=== PATIENT | male | born 1990 | race Caucasian/White ===

== ENCOUNTER 2020-11-05 18:45 | Emergency (ER) | payer BC, SELFPAY ==
[2020-11-05] VITALS (8 sets, daily range): BP systolic 118–144; BP diastolic 86–102; PULSE 102–123; RESP 12–20; TEMP 37; O2SAT 93–99
--- NOTE | 2020-11-05 19:01 | ECG_ITS ---
Measurements Intervals [place] Rate: 116 P: 4 MN: 124 QRS: 30 QRSD: 89 T: 49 QT: 286 QTc: 398 Interpretive Statements SINUS TACHYCARDIA INCOMPLETE RIGHT BUNDLE BRANCH BLOCK ABNORMAL ECG Electronically Signed On 11-06-2020 7:12:16 WOOD FLOUR MILLER by Aurelio Carrion D.O.
[2020-11-05 19:44] LABS: Basophils Percent Auto 0.4 % (0.2-1.2); Hematocrit 47.6 % (42.0-52.0); Hemoglobin 16.7 g/dL (14.0-18.0); Immature Granulocyte Absolute 0.01 K/mm3 (0.00-0.031); Immature Granulocyte Percent A 0.2 % (0-0.5); Lymphocytes Absolute Auto 1.43 K/mm3 (0.9-3.2); Lymphocytes Percent Auto 28.3 % (18.3-44.2); Mean Corpuscular HGB Conc 35.1 g/dl (32-36); Mean Corpuscular Hemoglobin 31.1 pg (26-34); Mean Corpuscular Volume 88.6 fl (80-100); Mean Platelet Volume 10.3 fl (7.4-10.4); Monocytes Absolute Auto 0.3 K/mm3 (0.1-0.6); Monocytes Percent Auto 5.1 % (2.6-8.5); Neutrophils Absolute Auto 3.3 K/mm3 (1.3-6.7); Platelet Count Result 173 k/mm3 (150-375); Red Blood Count 5.37 M/mm3 (4.6-6.20); Red Cell Distribution Width 11.7 % (11.5-14.5); White Blood Count 5.1 K/mm3 (4.5-10.0)
[2020-11-05] MEDS: ONDANSETRON INJ 4 MG/2 ML VIAL IV PUSH (19:46)
[2020-11-05] MEDS: SODIUM CHLORIDE 0.9% IV 1,000 ML 999 ML IV CONT ×2 (19:47→21:06)
[2020-11-05 19:59] LABS: Alanine Aminotransferase 384 U/L (4-50); Albumin Level 4.6 g/dL (3.5-5.1); Alkaline Phosphatase 138 U/L (38-126); Anion Gap 7 mmol/L (8-16); Aspartate Amino Transferase 190 U/L (17-59); Bilirubin,Total 1.4 mg/dL (0.2-1.3); Blood Urea Nitrogen 19 mg/dL (9-20); Calcium 8.7 mg/dL (8.4-10.2); Carbon Dioxide 28 mmol/L (22-30); Chloride 100 mmol/L (98-107); Estimated CRCL calculation 128 ml/min; Estimated Glomerular Filt Rate > 60; Glucose 117 mg/dL (75-110); Potassium 3.8 mmol/L (3.4-5.0); Sodium 135 mmol/L (137-145)
--- NOTE | 2020-11-05 21:35 | ED.GENADULT ---
HPI - General Adult General Chief complaint: Shortness of Breath/Dyspnea Stated complaint: COVID+, N/V, coughing Time Seen by Provider: 11/05/20 18:59 History of Present Illness HPI narrative: Patient is a 30-year-old male who presents ER with fatigue and weakness. Patient recently diagnosed with COVID-19. Reports he has been having nausea and vomiting has been unable to eat or drink anything. This is caused him to start feeling lightheaded. He took a warm bath tonight when he got out she had syncope. He reports his urine is dark. No runny nose/sore throat. He is having no dyspnea. Mild cough. Related Data Allergies Allergy/AdvReac Type Severity Reaction Status Date / Time No Known Allergies Allergy Verified 11/05/20 18:52 Review of Systems Review of Systems: All systems reviewed & are unremarkable except as noted in HPI and below Constitutional: Constitutional: Denies chills, Reports fatigue, Denies fever(s) and Reports weakness ENT: Denies dizziness and Denies sore throat Respiratory: Respiratory: Reports cough, Denies dyspnea and Denies wheezing Gastrointestinal: Gastrointestinal: Reports diarrhea, Reports nausea and Reports vomiting Genitourinary: Genitourinary: Denies oliguria, Denies dysuria and Denies urinary frequency PMFSH Past Medical History Medical History (Updated 11/05/20 @ 21:38 by Robbin Kingsley MD) Healthy adult male Surgical History Surgical History (Updated 11/05/20 @ 21:37 by Robbin Kingsley MD) No pertinent past surgical history Social History Social History Gender identity (if verbalized by the patient): Male Exam Narrative: Exam Narrative: GENERAL: Well-appearing, well-nourished, and in no acute distress. HEAD: Normocephalic, atraumatic. CHEST: Clear to auscultation. No respiratory distress. HEART: Tachycardic and regular. Normal peripheral pulses. ABDOMEN: Soft, nontender, nondistended, normal active bowel sounds. EXTREMITIES: Normal range of motion. No edema. SKIN: Warm, dry, no rash. NEURO: N Alert and oriented x3. PSYCH: Normal mood and affect. Course Course Emergency Course: Patient's heart rate elevated with orthostatic testing. No drop in blood pressure. No syncope. Patient given 2 L of IV fluid. Mild transaminitis from COVID-19. No hypoxia. Discharge home. Vital Signs Vital signs: Vital Signs Temperature 98.6 F 11/05/20 18:50 Pulse Rate 117 H 11/05/20 18:50 Respiratory Rate 12 11/05/20 18:50 Blood Pressure 144/102 H 11/05/20 18:50 Pulse Oximetry 93 11/05/20 18:50 Temperature 98.6 F 11/05/20 18:50 Pulse Rate 119 H 11/05/20 20:48 Respiratory Rate 18 11/05/20 20:48 Blood Pressure 124/89 11/05/20 20:48 Pulse Oximetry 94 11/05/20 20:48 Medical Decision Making Vital Signs Vital Signs: Vital Signs Temperature 98.6 F 11/05/20 18:50 Pulse Rate 117 H 11/05/20 18:50 Respiratory Rate 12 11/05/20 18:50 Blood Pressure 144/102 H 11/05/20 18:50 Pulse Oximetry 93 11/05/20 18:50 Temperature 98.6 F 11/05/20 18:50 Pulse Rate 119 H 11/05/20 20:48 Respiratory Rate 18 11/05/20 20:48 Blood Pressure 124/89 11/05/20 20:48 Pulse Oximetry 94 11/05/20 20:48 Lab Data Result diagrams: 11/05/20 19:39 11/05/20 19:39 Labs: Lab Results 11/05/20 11/05/20 Range/Units 19:39 19:39 WBC 5.1 (4.5-10.0) K/mm3 RBC 5.37 (4.6-6.20) M/mm3 Hgb 16.7 (14.0-18.0) g/dL Hct 47.6 (42.0-52.0) % MCV 88.6 (80-100) fl MCH 31.1 (26-34) pg MCHC 35.1 (32-36) g/dl RDW 11.7 (11.5-14.5) % Plt Count 173 (150-375) k/mm3 MPV 10.3 (7.4-10.4) fl Immature Gran % (Auto) 0.2 (0-0.5) % Neut % (Auto) 66.0 (45.5-73.1) % Lymph % (Auto) 28.3 (18.3-44.2) % [place] % (Auto) 5.1 (2.6-8.5) % Eos % (Auto) 0.0 (0-4.4) % Baso % (Auto) 0.4 (0.2-1.2) % Lymph # (Auto) 1.43 (0.9-3.2) K/mm3 [place] # (Auto) 0.3 (0.1-0.6) K/mm3 Eos # (Auto)
== END 2020-11-05 22:08 | disposition home or self-care (01) ==
PROVIDERS: Emergency Provider Emergency Medicine; PCP Registered Nurse
DX: U07.1 COVID-19 (principal); E86.0 Dehydration
CPT/HCPCS: 36415; 80053; 85025; 93005; 96361; 96374; 99284; J2405; J7030

== ENCOUNTER 2020-11-08 22:22 | Inpatient (IN) | payer BC, SELFPAY ==
--- NOTE | ~2020-11-08 | US_ITS ---
EXAMINATION: US abdomen limited EXAM DATE: 11/09/2020 12:41 INDICATION: Elevated liver function tests. TECHNIQUE: Multiple grayscale and Doppler images of the abdomen right upper quadrant were obtained (b y a technologist who performed the scan) and subsequently reviewed. There is no prior study for claudia tobin. FINDINGS: The pancreatic head and body are normal in appearance. The pancreatic tail is not visualized. Mildl y echogenic liver parenchyma, hepatic steatosis. There are no focal liver lesions identified. Ther e is no evidence of intrahepatic biliary duct dilation. Portal venous flow was seen in the hepatoped al, normal direction and has normal Doppler waveform. No right-sided hydronephrosis. Common bile duct measures 3 mm, which is normal. The gallbladder wall is normal in thickness, with ex pected amount of distention. No sonographic evidence of pericholecystic fluid. There is no cholelit hiases. Technologist performing exam reports patient did not demonstrate sonographic Pope's sign. Please note that this sign is less reliable in patients who have received pain medication. IMPRESSION: 1. Hepatic steatosis. Reviewed, dictated and finalized at location A. NOGRAPHY PROFESSOR IMPRESSION: 1. Hepatic steatosis.
--- NOTE | ~2020-11-08 | XR_ITS ---
EXAMINATION: XR chest 1V portable DATE: 11/14/2020 09:51 INDICATION: COVID-19 pneumonia. TECHNIQUE: A single frontal view of the chest was obtained. COMPARISON: Chest single view 11/09/2020, chest CT 11/09/2020 FINDINGS: There are airspace opacities in all lung zones bilaterally. No pleural effusion or pneumoth orax. The heart size is normal. IMPRESSION: 1. Diffuse lung disease with worsening on the right, consistent with pneumonia. Reviewed, dictated and finalized at location A. TURNER
--- NOTE | ~2020-11-08 | CT_ITS ---
EXAMINATION: CTA chest PE protocol DATE: 11/09/2020 13:24 INDICATION: Hypoxia TECHNIQUE: Computed tomography (CT) pulmonary angiogram of the chest was performed with 100 mL Omnipa que-350 intravenous contrast. Additional 3D reconstructions utilizing coronal maximum intensity proje ction (MIP) were performed. Automated exposure control and iterative reconstruction technique were em ployed. The dose-length product was 597.80 mGy-cm. COMPARISON: None FINDINGS: Good but suboptimal contrast opacification of the pulmonary arteries. There is mild streak artifact f rom dense contrast in the superior vena cava and right atrium. Mild to moderate scattered respiratory motion artifact. Together this significantly decreases sensitivity in the smaller subsegmental pulmo nary arteries. No central pulmonary embolism through the lobar and primary segmental pulmonary arteri es. Extensive bilateral patchy consolidation groundglass opacities throughout all lobes of both lungs with appearance most suggestive of COVID pneumonia. No pleural effusion. Heart size is normal. No pe ricardial effusion. Mild enlargement of the central pulmonary arteries consistent with pulmonary jaylyn rial hypertension. Thoracic aorta is normal in caliber with no dissection. Mildly enlarged bilateral hilar and mediastinal lymph nodes which are likely reactive. Visualized upper abdomen and bones are u nremarkable. IMPRESSION: 1. No central pulmonary embolism through the first order segmental pulmonary arteries. More periphera l evaluation is limited by suboptimal contrast opacification and mild to moderate scattered motion ar tifact. 2. Extensive patchy bilateral lung disease with appearance most suggestive of COVID pneumonia. 3. Mild enlargement of the central pulmonary arteries consistent with pulmonary arterial hypertension . 4. Mild likely reactive mediastinal and bilateral hilar lymphadenopathy. Reviewed, dictated and finalized at location B. T GRID ENGINEER IMPRESSION: 1. No central pulmonary embolism through the first order segmental pulmonary ar teries. More peripheral evaluation is limited by suboptimal contrast opacificat ion and mild to moderate scattered motion artifact. 2. Extensive patchy bilateral lung disease with appearance most suggestive of C OVID pneumonia. 3. Mild enlargement of the central pulmonary arteries consistent with pulmonary arterial hypertension. 4. Mild likely reactive mediastinal and bilateral hilar lymphadenopathy.
--- NOTE | ~2020-11-08 | XR_ITS ---
EXAMINATION: XR chest 1V portable EXAM DATE: 11/09/2020 10:31 INDICATION: Hypoxia worsening, COVID 19. TECHNIQUE: Portable AP frontal chest x-ray was obtained. Comparison is made to prior examination from 11/08/2020. FINDINGS: This study probably better penetrated than yesterday's exam. Moderate to large amount of bi lateral acute airspace disease consistent with COVID pneumonia. Accounting for differences in techniq ue, there is no significant interval change. The cardiomediastinal silhouette is prominent but magnified on this AP technique. There is no pneumot horax suspected. There are no pleural effusions. There are no osseous abnormalities identified. IMPRESSION: Moderate to large amount of COVID pneumonia unchanged. Reviewed, dictated and finalized at location A. R RENOVATOR
--- NOTE | ~2020-11-08 | XR_ITS ---
XR chest 1V portable DATE: 11/08/2020 23:14 INDICATION: Generalized chest pain for one week. Dyspnea. Covid-positive. TECHNIQUE: Portable upright AP chest on 11/08/2020 at 2310 hours COMPARISON: None FINDINGS: There are extensive patchy consolidating infiltrates throughout both lung toney. Normal heart size. No pleural effusion or pneumothorax. No pulmonary vascular congestion. IMPRESSION: Extensive bilateral patchy consolidating infiltrates, most likely due to severe bilateral pneumonia, very possibly secondary to Covid 19 Reviewed, dictated and finalized at location A. ERCIAL SHRIMPING CAPTAIN IMPRESSION: Extensive bilateral patchy consolidating infiltrates, most likely d ue to severe bilateral pneumonia, very possibly secondary to Covid 19
[2020-11-08 22:24] VITALS: BP 129/83; PULSE 116; RESP 22; TEMP 36.4; O2SAT 87
--- NOTE | 2020-11-08 22:31 | ECG_ITS ---
Measurements Intervals [place] Rate: 109 P: 28 NV: 155 QRS: 17 QRSD: 90 T: 48 QT: 302 QTc: 408 Interpretive Statements SINUS TACHYCARDIA INCOMPLETE RIGHT BUNDLE BRANCH BLOCK BASELINE WANDER- V1-V3 ABNORMAL ECG Electronically Signed On 11-09-2020 7:07:14 MULTIPLEX OPERATOR by Aurelio Carrion D.O.
[2020-11-08 22:40] VITALS: O2SAT 84
[2020-11-08 22:41] VITALS: BP 136/93; PULSE 110; RESP 25; O2SAT 91
--- NOTE | 2020-11-08 22:43 | ED.GENADULT ---
HPI - General Adult General Chief complaint: Shortness of Breath/Dyspnea Stated complaint: breathing problems, COVID positive Time Seen by Provider: 11/08/20 22:31 History of Present Illness HPI narrative: Patient is a 30-year-old gentleman who presents emergency department with chief complaint of shortness of breath. The patient reports that he was diagnosed with COVID-19 last week patient reports that he has been having a cough and has felt short of breath the patient states he got worse in the last 24 hours patient reports that is not improved by anything Related Data Allergies Allergy/AdvReac Type Severity Reaction Status Date / Time No Known Allergies Allergy Verified 11/05/20 18:52 Review of Systems Review of Systems: Narrative: A 10 system review of systems was completed on the patient and is negative except for what is stated in the HPI. Nursing and ancillary documentation was reviewed. PMFSH Past Medical History Medical History Healthy adult male Surgical History Surgical History No pertinent past surgical history Social History Social History Gender identity (if verbalized by the patient): Male Comments Patient has a recent past medical history of COVID-19 Social history the patient denies smoking Exam Narrative: Exam Narrative: GENERAL: Well-appearing, well-nourished, and in no acute distress. HEAD: Normocephalic, atraumatic. EYES: PERRLA and EOMI. ENT: Nares clear, no rhinorrhea or epistaxis. Mucous membranes moist. NECK: Supple. CHEST: Clear to auscultation. No respiratory distress. HEART: Regular rate and rhythm. No murmur heard. Normal peripheral pulses. ABDOMEN: Soft, nontender, nondistended, normal active bowel sounds. EXTREMITIES: Normal range of motion. No edema. SKIN: Warm, dry, no rash. NEURO: No focal deficits. Alert and oriented x3. PSYCH: Normal mood and affect. Course Vital Signs Vital signs: Vital Signs Temperature 36.4 C 11/08/20 22:24 Pulse Rate 116 H 11/08/20 22:24 Respiratory Rate 22 H 11/08/20 22:24 Blood Pressure 129/83 11/08/20 22:24 Pulse Oximetry 87 L 11/08/20 22:24 Temperature 36.4 C 11/08/20 22:24 Pulse Rate 115 H 11/08/20 23:42 Respiratory Rate 23 H 11/08/20 23:42 Blood Pressure 131/85 11/08/20 23:31 Pulse Oximetry 91 11/08/20 23:42 Medical Decision Making Vital Signs Vital Signs: Vital Signs Temperature 36.4 C 11/08/20 22:24 Pulse Rate 116 H 11/08/20 22:24 Respiratory Rate 22 H 11/08/20 22:24 Blood Pressure 129/83 11/08/20 22:24 Pulse Oximetry 87 L 11/08/20 22:24 Temperature 36.4 C 11/08/20 22:24 Pulse Rate 115 H 11/08/20 23:42 Respiratory Rate 23 H 11/08/20 23:42 Blood Pressure 131/85 11/08/20 23:31 Pulse Oximetry 91 11/08/20 23:42 Lab Data Result diagrams: 11/08/20 22:54 11/08/20 22:54 Labs: Lab Results 11/08/20 11/08/20 11/08/20 Range/Units 22:54 22:54 22:54 WBC 10.5 H (4.5-10.0) K/mm3 RBC 4.92 (4.6-6.20) M/mm3 Hgb 15.3 (14.0-18.0) g/dL Hct 44.4 (42.0-52.0) % MCV 90.2 (80-100) fl MCH 31.1 (26-34) pg MCHC 34.5 (32-36) g/dl RDW 12.0 (11.5-14.5) % Plt Count 258 (150-375) k/mm3 MPV 10.0 (7.4-10.4) fl Immature Gran % (Auto) 0.8 H (0-0.5) % Neut % (Auto) 85.5 H (45.5-73.1) % Lymph % (Auto) 10.5 L (18.3-44.2) % [place] % (Auto) 3.0 (2.6-8.5) % Eos % (Auto) 0.0 (0-4.4) % Baso % (Auto) 0.2 (0.2-1.2) % Lymph # (Auto) 1.10 (0.9-3.2) K/mm3 [place] # (Auto) 0.3 (0.1-0.6) K/mm3 Eos # (Auto) 0.0 (0-0.3) K/mm3 Baso # (Auto) 0.0 (0.0-0.1) K/mm3 Abs Immat Gran (auto) 0.08 H (0.00-0.031) K/mm3 Absolute Neuts (auto) 8.9 H (1.3-6.7) K/mm3 Absolute Nucleated RBC 0.0 (0
[2020-11-08 22:52] LABS: Alveolar/Arterial O2 Gradient 101.8 mmHg; Base Excess ABG 0.3 mEq/l (+/-2.0); Device NASAL CANNULA; Fractional Inspired Oxygen 28 %; HCO3 ABG 23.9 mEq/l (22.0-26.0); Modified Allen's Test Pass; Oxygen Content ABG 19.6 %vol (16.0-22.0); Oxygen Saturation ABG 90.4 % (95.0-100.0); Oxyhemoglobin 89.1 % THb (90.0-100.0); PCO2 ABG 35.6 mmHg (35.0-45.0); PO2 ABG 55.8 mmHg (80.0-100.0); PO2 FiO2 Ratio Arterial Blood 1.99 %; Site Drawn RIGHT RADIAL; Total Hemoglobin 15.7 g/dL (12.0-18.0); pH ABG 7.444 (7.350-7.450)
[2020-11-08] MEDS: DEXAMETHASONE SOD PHOS INJ 4 MG/ML VIAL 6 MG IV PUSH (22:52)
[2020-11-08] MEDS: ALBUTEROL SULFATE (*SP) INHALER 2 PUFF INHALATION (22:57)
[2020-11-08 23:11] LABS: Basophils Percent Auto 0.2 % (0.2-1.2); Hematocrit 44.4 % (42.0-52.0); Hemoglobin 15.3 g/dL (14.0-18.0); Immature Granulocyte Absolute 0.08 K/mm3 (0.00-0.031); Immature Granulocyte Percent A 0.8 % (0-0.5); Lymphocytes Percent Auto 10.5 % (18.3-44.2); Mean Corpuscular HGB Conc 34.5 g/dl (32-36); Mean Corpuscular Hemoglobin 31.1 pg (26-34); Mean Corpuscular Volume 90.2 fl (80-100); Monocytes Absolute Auto 0.3 K/mm3 (0.1-0.6); Neutrophils Absolute Auto 8.9 K/mm3 (1.3-6.7); Neutrophils Percent Auto 85.5 % (45.5-73.1); Platelet Count Result 258 k/mm3 (150-375); Red Blood Count 4.92 M/mm3 (4.6-6.20); White Blood Count 10.5 K/mm3 (4.5-10.0)
[2020-11-08 23:12] VITALS: PULSE 117; O2SAT 91
[2020-11-08 23:22] LABS: INR 1.1; Lactic Acid Reflex 0.8 mmol/L (0.7-2.1); Prothrombin Time 14.3 Seconds (11.1-14.7)
[2020-11-08 23:23] LABS: Partial Thromboplastin Time 36.1 SECONDS (22.3-36.8)
[2020-11-08 23:24] LABS: Alanine Aminotransferase 304 U/L (4-50); Alkaline Phosphatase 295 U/L (38-126); Anion Gap 9 mmol/L (8-16); Aspartate Amino Transferase 157 U/L (17-59); Bilirubin,Total 2.4 mg/dL (0.2-1.3); Blood Urea Nitrogen 15 mg/dL (9-20); Calcium 8.7 mg/dL (8.4-10.2); Carbon Dioxide 27 mmol/L (22-30); Chloride 101 mmol/L (98-107); Estimated CRCL calculation 143 ml/min; Estimated Glomerular Filt Rate > 60; Glucose 118 mg/dL (75-110); Magnesium 2.2 mg/dL (1.6-2.3); Potassium 4.2 mmol/L (3.4-5.0); Sodium 137 mmol/L (137-145)
[2020-11-08 23:26] LABS: Add Urine Microscopic? YES; Appearance Urine Clear (Clear); Bilirubin Urine 1+ (Negative); Blood Urine 1+ (Negative); Color Urine Amber (Yellow); Glucose Urine UA Negative (Negative); Ketones Urine Negative (Negative); Leukocyte Esterase Ur Negative LEU/UL (Negative); Mucus Urine Few /lpf; Nitrate Urine Negative (Negative); Protein Urine 2+ mg/dL (Negative); Specific Grav Ur 1.026 (1.001-1.035); Squamous Epithelial Cell Urine Rare /hpf (Few)
[2020-11-08 23:31] VITALS: BP 131/85; PULSE 114; RESP 28; O2SAT 90
[2020-11-08 23:36] LABS: NT Pro B Type Natriuretic Pept 36 PG/ML (5-100); Troponin I < 0.012 ng/mL (0.000-0.034)
[2020-11-08 23:42] VITALS: PULSE 115; RESP 23; O2SAT 91
[2020-11-09] VITALS (20 sets, daily range): BP systolic 102–148; BP diastolic 65–94; PULSE 90–108; RESP 18–37; TEMP 36.2–38.1; O2SAT 90–98; BMI 29.2
--- NOTE | 2020-11-09 | ECHO_ITS ---
Patient Info Name: Slava Morrison Age: 30 years : 1990 Gender: Male Ht: 76 in Wt: 240 lbs BSA: 2.43 m2 HR: 107 bpm BP: 124 / 83 mmHg Heart Rhythm: Tachycardia Technical Quality: Good Exam Date: 11/09/2020 2:51 PM Exam Location: [facility] Patient Status: Inpatient Admit Date: 11/09/2020 Staff Ordering Physician: Rosa Valdivia PA-C Transportation Maintenance Specialist: Milton Pope, ZOHAIB, RT Attending Provider: Rosa Valdivia PA-C Referring Physician: Skip BLUE; Exam Type: CA echo doppler color flow Study Info Indications I27.2 - Other secondary pulmonary hypertension Complete two-dimensional, color flow and Doppler transthoracic echocardiogram is performed. Strain analysis performed. Summary 1. Complete two-dimensional, color flow and Doppler transthoracic echocardiogram is performed. 2. Strain analysis performed. 3. Left ventricular chamber dimension is normal. 4. Left ventricular systolic function is normal, estimated at 60-65%. 5. There is mildly increased left ventricular wall thickness. 6. The left ventricular diastolic function is grade I diastolic dysfunction. 7. Global longitudinal strain is abnormal at -15 %. 8. There is mild mitral valve regurgitation. 9. There is mild pulmonic regurgitation. 10. The aortic root size at the sinus of Valsalva is dilated. Left Ventricle Left ventricular chamber dimension is normal. Left ventricular systolic function is normal, estimated at 60-65%. There is mildly increased left ventricular wall thickness. The left ventricular diastolic function is grade I diastolic dysfunction. Global longitudinal strain is abnormal at -15 %. Right Ventricle Right ventricular chamber dimension is normal. Right ventricular systolic function is normal. Left Atria Left atrial chamber dimension is normal. Right Atria Right atrial chamber dimension is normal. Atrial Septum Intact interatrial septum visualized by color flow imaging. Aortic Valve The aortic valve is trileaflet. There is mild aortic valve sclerosis. There is no aortic valve stenosis. There is trace aortic valve regurgitation. Pulmonic Valve The pulmonic valve is normal. There is no pulmonic valve stenosis. There is mild pulmonic regurgitation. Mitral Valve The mitral valve has normal leaflets. There is no mitral valve stenosis. There is mild mitral valve regurgitation. Tricuspid Valve The tricuspid valve leaflets are normal. There is no significant tricuspid valve stenosis. There is trace tricuspid valve regurgitation. Pericardium/Pleural The pericardium appears normal. There is no pericardial effusion. Inferior Vena Cava Normal inferior vena cava with >50% collapse upon inspiration consistent with normal right atrial pressure, 5 mmHg. Aorta The aortic root size at the sinus of Valsalva is dilated. Left Ventricular Outflow Tract Name Value Normal LVOT 2D LVOT Diameter 2.4 cm LVOT Doppler LVOT Peak Gradient 4 mmHg LVOT Mean Gradient 2 mmHg LVOT VTI 16 cm
--- NOTE | 2020-11-09 00:03 | PC.NURSE ---
Pt's o2 increased to 4L/NC for consistent spo2 88-89%.
[2020-11-09 00:17] LABS: D Dimer 0.44 ug/mL (<0.48)
--- NOTE | 2020-11-09 01:15 | ADMGEN ---
This patient, Slava Morrison, was admitted to [facility] Surg Room 324-01. Patient/family oriented to hospital policies and general routines including ID bracelet, bed and alarms, visiting hours, pain management, procedures, bathroom and other care routines, personal items, smoking policy, room service/diet, and visiting hours. Information on how to activate the Rapid Response Team has been discussed. Patient/Family are encouraged to report perceived risks to care and to ask questions if they do not understand what they are told or what they should do.
[2020-11-09] MEDS: LACTATED RINGERS 1,000 ML 125 ML IV CONT (01:22)
[2020-11-09] MEDS: ENOXAPARIN 120 MG/0.8 ML SYRINGE 105 MG SUB-Q (01:56)
[2020-11-09 08:36] LABS: Basophils Percent Auto 0.3 % (0.2-1.2); Hematocrit 42.2 % (42.0-52.0); Hemoglobin 14.2 g/dL (14.0-18.0); Immature Granulocyte Absolute 0.09 K/mm3 (0.00-0.031); Immature Granulocyte Percent A 0.9 % (0-0.5); Lymphocytes Absolute Auto 0.77 K/mm3 (0.9-3.2); Lymphocytes Percent Auto 7.4 % (18.3-44.2); Mean Corpuscular HGB Conc 33.6 g/dl (32-36); Mean Corpuscular Hemoglobin 30.3 pg (26-34); Mean Corpuscular Volume 90.2 fl (80-100); Mean Platelet Volume 9.5 fl (7.4-10.4); Monocytes Absolute Auto 0.3 K/mm3 (0.1-0.6); Monocytes Percent Auto 2.6 % (2.6-8.5); Neutrophils Absolute Auto 9.3 K/mm3 (1.3-6.7); Neutrophils Percent Auto 88.8 % (45.5-73.1); Platelet Count Result 276 k/mm3 (150-375); Red Blood Count 4.68 M/mm3 (4.6-6.20); Red Cell Distribution Width 12.1 % (11.5-14.5); White Blood Count 10.4 K/mm3 (4.5-10.0)
[2020-11-09 08:50] LABS: Bilirubin Indirect 0.7 mg/dL (0-1.1)
[2020-11-09 08:52] LABS: Alanine Aminotransferase 272 U/L (4-50); Albumin Level 3.8 g/dL (3.5-5.1); Alkaline Phosphatase 259 U/L (38-126); Anion Gap 4 mmol/L (8-16); Aspartate Amino Transferase 133 U/L (17-59); Bilirubin,Total 1.9 mg/dL (0.2-1.3); Blood Urea Nitrogen 14 mg/dL (9-20); CRP 6.4 mg/dL (<1.0); Calcium 8.4 mg/dL (8.4-10.2); Carbon Dioxide 33 mmol/L (22-30); Chloride 100 mmol/L (98-107); Creatine Kinase 185 U/L (55-170); Estimated CRCL calculation 143 ml/min; Estimated Glomerular Filt Rate > 60; Glucose 119 mg/dL (75-110); Lactate Dehydrogenase 1243 U/L (313-618); Magnesium 2.3 mg/dL (1.6-2.3); Potassium 4.7 mmol/L (3.4-5.0); Sodium 137 mmol/L (137-145)
[2020-11-09] MEDS: ALBUTEROL SULFATE (*SP) AEROSOL 1 PUFF 2 PUFF INHALATION (09:00)
[2020-11-09] MEDS: ENOXAPARIN 40 MG/0.4 ML SYRINGE SUB-Q ×2 (09:15→20:50)
[2020-11-09] MEDS: DEXAMETHASONE SOD PHOS INJ 4 MG/ML VIAL 6 MG IV PUSH (09:15)
[2020-11-09] MEDS: amLODIPine BESYLATE 5 MG TABLET 10 MG PO (09:15)
[2020-11-09] MEDS: hydroCHLOROthiazide 25 MG TABLET PO (09:16)
--- NOTE | 2020-11-09 09:52 | ECG_ITS ---
Measurements Intervals [place] Rate: 107 P: 31 WI: 164 QRS: 13 QRSD: 86 T: 46 QT: 304 QTc: 406 Interpretive Statements SINUS TACHYCARDIA INCOMPLETE RIGHT BUNDLE BRANCH BLOCK DELAYED PRECORDIAL R/S TRANSITION BASELINE ARTIFACT- III, AVR, AVL, AVF ABNORMAL ECG Electronically Signed On 11-09-2020 11:44:35 CANDLE WRAPPER by Aurelio Carrion D.O.
[2020-11-09 10:09] LABS: Hepatitis B Surface Antigen Negative (Negative)
[2020-11-09 10:15] LABS: HAV RESULT Negative (Negative); Hepatitis B Core IgM Result Negative (Negative)
[2020-11-09 10:21] LABS: Troponin I < 0.012 ng/mL (0.000-0.034)
[2020-11-09 10:24] LABS: Alveolar/Arterial O2 Gradient 626.1 mmHg; Carboxyhemoglobin 0.1 % THb (0-2.0); Fractional Inspired Oxygen 100 %; HCO3 ABG 23.3 mEq/l (22.0-26.0); Methemoglobin ABG 0.2 %THb (0-1.5); Oxygen Content ABG 18.9 %vol (16.0-22.0); Oxygen Saturation ABG 89.1 % (95.0-100.0); Oxyhemoglobin 88.2 % THb (90.0-100.0); PCO2 ABG 34.2 mmHg (35.0-45.0); PO2 ABG 52.7 mmHg (80.0-100.0); PO2 FiO2 Ratio Arterial Blood 0.53 %; Reduced Hemoglobin 11.5 %THb (0-5.0); Total Hemoglobin 15.3 g/dL (12.0-18.0); pH ABG 7.451 (7.350-7.450)
--- NOTE | 2020-11-09 10:24 | PM.IMHP ---
H&P: HPI History of Present Illness Date/Time: 11/09/20 10:24 Chief Complaint: COVID-19 with worsening symptoms Narrative: Slava Morrison is a 30 year old male with PMH significant for hypertension who presented to the emergency department 11/08/20 for the evaluation of worsening dyspnea and pleuritic pain. He tested positive for COVID-19 on 10/31/20. His is also positive for COVID-19 but she is asymptomatic. He developed several symptoms starting 10/30/20. Initial symptoms included body aches, fatigue, dysguesia, anosmia, vomiting, diarrhea, headaches, and fever with Tmax 101F early in his illness. Approximately 3 days ago, he developed cough, pleuritic pain, and dyspnea which progressively worsened. He feels it is extremely difficult to take deep breaths due to the pain. He was hypoxic on arrival to the emergency department with pulse oximetry reading of 87%. He was placed on 2 liters per nasal cannula with improvement. Initial workup in the emergency department included CXR which demonstrated extensive bilateral patchy consolidating infiltrates. WBC 10,500 with neutrophil predominance. CMP notable for elevated bilirubin at 2.4, AST 157, ALT 304, ALP 295. BNP 36. ABG notable for normal pH 7.44 and low pO2 55.8. EKG demonstrated sinus tachycardia and incomplete right bundle branch block. Troponin <0.012. D-Dimer 0.44. He was treated with IV dexamethasone and admitted to the hospitalist service. I was called by his RN at 9:45AM and notified that his oxygen requirements increased to 14 liters high-flow. He was also having heartburn at that time with belching. I came to see the patient immediately. He was resting comfortably in bed and able to speak in full sentences. He did report significant pleuritic pain. I ordered STAT ABG, CXR, EKG, troponin, and chest CTA. I called to speak with the industrial robotics mechanic, Dr. Cooper, and second cutter, Dr. Lund. We will transfer the patient to ICU as IMU status for [facility]. Review of Systems Review of Systems: Narrative: Constitutional: Reports fever early on in his illness with no recent fevers but chills/sweats at night. Reports poor appetite, especially over the past 3 days. He is able to keep fluids down. Eyes: Denies vision change. No additional eye complaints. ENT: Denies change in hearing, nasal congestion, dysphagia, odynophagia, and sore throat. Cardiovascular: Denies palpitations and chest pain. Respiratory: As above. Gastrointestinal: Denies abdominal pain, nausea, and vomiting. Reports heartburn. Denies melena and hematochezia. Genitourinary: Denies dysuria, frequency, urgency, and hesitancy. Skin: Denies lesions and wounds. Neurologic: Denies focal weakness, paresthesias, confusion, and speech change. Denies headache. Psychiatric: Denies mood change. Denies anxiety and depression. Hematologic: Denies easy bruising and bleeding. All systems reviewed & are unremarkable except as noted in HPI and below PMFSH Past Medical History Medical History (Updated 11/09/20 @ 10:51 by Rosa Valdivia PA-C) Healthy adult male Hypertension Surgical History Surgical History (Updated 11/09/20 @ 10:51 by Rosa Valdivia PA-C) Labral tear of shoulder s/p surgical repair No pertinent past surgical history Family History Family History Father Heart disease Social History Social History Social History: Mr. Morrison is a 30 y.o. male who lives in [place] with his , Patience. 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 He wishes to be a full code and he has designated his mother, Sophie Morrison, as his surrogate medical decision maker. Smoking status: Never smoker Alcohol intake: current Drinks per week: 3 Alcohol use details: He drinks socially approximately 2 times per week. Substance use: never Gender identity (if verbalized by the patient): Male Sexual
[2020-11-09 10:25] LABS: Device HIGH FLOW NASAL CANN; Modified Allen's Test Pass; Site Drawn RIGHT RADIAL
[2020-11-09 10:26] LABS: Hepatitis C Virus Antibody Negative (Negative)
[2020-11-09 11:04] LABS: Alanine Aminotransferase 265 U/L (4-50); Estimated CRCL calculation 143 ml/min; Estimated Glomerular Filt Rate > 60
[2020-11-09 11:15] LABS: Creatine Kinase 183 U/L (55-170)
--- NOTE | 2020-11-09 11:50 | PC.NURSE ---
This patient, Slava Morrison, was received from [facility] on 11/09/20 at 1150. Report received from VIKY Marshall. Patient oriented to unit policies and routines.
[2020-11-09] MEDS: REMDESIVIR 200 MG/NS 250 ML 200 MG/250 ML BAG 250 MG IVPB (12:26)
--- NOTE | 2020-11-09 13:10 | PM.CNPUL ---
Assessment and Plan Assessment and plan (1) Pneumonia due to 2019 novel coronavirus: Code(s): U07.1 - COVID-19; J12.82 - Pneumonia due to coronavirus disease 2019 Status: Acute Assessment and Plan: This patient has COVID-19 pneumonia with acute hypoxic respiratory failure that is rapidly declining. Although he has about 10 days or longer out from the beginning of his symptoms and his LFTs are elevated I believe the addition of Remdesivir 2 dexamethasone outweighs the risks currently as long as daily LFT monitoring is in place. If his liver function tests become elevated at greater than 10 times the upper limit of normal Remdesivir should be discontinued. I see no signs of superimposed bacterial infection and hence no antibiotics are needed at this time unless there is a clinical change. I agree with a CT chest PE protocol to rule out a concomitant pulmonary embolism. I agree with do DVT prophylaxis that is slightly modified at 40 mg subcu b.i.d.. I agree with moving the patient to the intensive care unit and maintaining oxygenation 92-96%. Prone positioning during the day while awake should be instituted for as long as the put patient can tolerate to improve oxygenation and overall outcome. (2) Acute respiratory failure with hypoxia: Code(s): J96.01 - Acute respiratory failure with hypoxia Status: Acute History of Present Illness History of Present Illness Consult date: 11/09/20 Chief complaint: COVID-19 pneumonia, hypoxic respiratory failure Narrative: This is a very pleasant 30-year-old male with a history of hypertension who is on antihypertensive medications and is admitted with COVID-19 and acute hypoxic respiratory failure. He was originally on 2 L nasal cannula on admission but his oxygenation needs have rapidly increased over the past 12-24 hours. He was started on systemic steroids on admission but Remdesivir was helpful increased LFTs. his symptoms began around October 29 which included loss of taste and smell, decreased appetite, nausea vomiting and diarrhea. Over the past 3 days he has developed a cough with increased shortness of breath. 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 He does not smoke Tobacco but on occasion smokes marijuana. he is currently on 15 L of oxygen by nasal cannula and appears in no respiratory distress and able to talk in full sentences. He is being moved to the intensive care unit for closer monitoring. Review of Systems Review of Systems: All systems reviewed & are unremarkable except as noted in HPI and below PMFSH Past Medical History Medical History (Updated 11/09/20 @ 10:51 by Rosa Valdivia PA-C) Healthy adult male Hypertension Surgical History Surgical History (Updated 11/09/20 @ 10:51 by Rosa Valdivia PA-C) Labral tear of shoulder s/p surgical repair No pertinent past surgical history Family History Family History Father Heart disease Social History Social History Social History: Mr. Morrison is a 30 y.o. male who lives in [place] with his , Patience. 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 He wishes to be a full code and he has designated his mother, Sophie Morrison, as his surrogate medical decision maker. Smoking status: Never smoker Alcohol intake: current Drinks per week: 3 Alcohol use details: He drinks socially approximately 2 times per week. Substance use: never Gender identity (if verbalized by the patient): Male Sexual Orientation (if Verbalized by the Patient): Straight or Heterosexual Spiritual care concerns: No Meds Home Medications and Allergies Home Medications Medication Instructions Recorded Confirmed Type promethazine 25 mg PO Q6H PRN #20 tablet 11/05/20 11/09/20 Rx amlodipine 10 mg PO DAILY 11/09/20 11/09/20 History hydrochlorothiazide
--- NOTE | 2020-11-09 14:21 | PCNSR ---
On 11/09/20, the student, Aleena Richardson, provided care and completed [facility] documentation on this patient. I have reviewed the student's documentation and agree with the findings.
[2020-11-09] MEDS: BUDESONIDE RESPULE NEB 0.5 MG/2 ML AMP 2 MG INHALATION (20:01)
[2020-11-09] MEDS: guaiFENesin 12 HR 600 MG TABCR 1200 MG PO (20:50)
[2020-11-10] VITALS (19 sets, daily range): BP systolic 120–144; BP diastolic 79–87; PULSE 82–95; RESP 20–35; TEMP 36.6–37.5; O2SAT 92–98
[2020-11-10] MEDS: CALCIUM CARBONATE (TUMS) 500 MG (200 MG ELEMENTAL) PO ×2 (00:45→16:02)
[2020-11-10 04:31] LABS: Basophils Percent Auto 0.2 % (0.2-1.2); Hematocrit 40.9 % (42.0-52.0); Hemoglobin 14.1 g/dL (14.0-18.0); Immature Granulocyte Percent A 0.9 % (0-0.5); Lymphocytes Absolute Auto 1.16 K/mm3 (0.9-3.2); Lymphocytes Percent Auto 10.2 % (18.3-44.2); Mean Corpuscular HGB Conc 34.5 g/dl (32-36); Mean Corpuscular Hemoglobin 30.9 pg (26-34); Mean Corpuscular Volume 89.5 fl (80-100); Mean Platelet Volume 9.5 fl (7.4-10.4); Monocytes Absolute Auto 0.4 K/mm3 (0.1-0.6); Monocytes Percent Auto 3.9 % (2.6-8.5); Neutrophils Absolute Auto 9.7 K/mm3 (1.3-6.7); Neutrophils Percent Auto 84.8 % (45.5-73.1); Platelet Count Result 298 k/mm3 (150-375); Red Blood Count 4.57 M/mm3 (4.6-6.20); Red Cell Distribution Width 12.1 % (11.5-14.5); White Blood Count 11.4 K/mm3 (4.5-10.0)
[2020-11-10 04:47] LABS: Alanine Aminotransferase 285 U/L (4-50); Albumin Level 3.8 g/dL (3.5-5.1); Alkaline Phosphatase 287 U/L (38-126); Anion Gap 5 mmol/L (8-16); Aspartate Amino Transferase 132 U/L (17-59); Bilirubin,Total 1.7 mg/dL (0.2-1.3); Blood Urea Nitrogen 20 mg/dL (9-20); Calcium 8.8 mg/dL (8.4-10.2); Carbon Dioxide 30 mmol/L (22-30); Chloride 100 mmol/L (98-107); Estimated CRCL calculation 162 ml/min; Estimated Glomerular Filt Rate > 60; Glucose 116 mg/dL (75-110); Magnesium 2.3 mg/dL (1.6-2.3); Potassium 4.3 mmol/L (3.4-5.0); Sodium 135 mmol/L (137-145)
[2020-11-10 04:50] LABS: CRP 4.5 mg/dL (<1.0); Creatine Kinase 83 U/L (55-170); Lactate Dehydrogenase 1147 U/L (313-618)
[2020-11-10] MEDS: BUDESONIDE RESPULE NEB 0.5 MG/2 ML AMP 2 MG INHALATION ×2 (07:40→21:53)
[2020-11-10] MEDS: hydroCHLOROthiazide 25 MG TABLET PO (08:28)
[2020-11-10] MEDS: guaiFENesin 12 HR 600 MG TABCR 1200 MG PO ×2 (08:28→21:34)
[2020-11-10] MEDS: amLODIPine BESYLATE 5 MG TABLET 10 MG PO (08:29)
[2020-11-10] MEDS: DEXAMETHASONE SOD PHOS INJ 4 MG/ML VIAL 6 MG IV PUSH (08:30)
[2020-11-10] MEDS: ENOXAPARIN 40 MG/0.4 ML SYRINGE SUB-Q ×2 (08:30→21:35)
--- NOTE | 2020-11-10 10:49 | PCDIET ---
Nutrition Follow-Up Complete: Nutrition Diagnosis: Inadequate oral intake related to COVID-19 pneumonia as evidenced by no intake at present. Nutrition Goal: Meet estimated caloric needs. Goal not met. Intakes 50% and below on heart healthy diet. Recommend regular diet, as tolerated, and changing supplement from Ensure Compact (220kcal, 9g protein) BID to Ensure Enlive (350kcal, 20g protein) TID. Last recorded weight is 109 kg (11/09/20). Bowel Motility: No documented BM. Labs Reviewed: Hct (40.9), Glu (116) Meds Noted: Albuterol, Norvasc, Pulmicort, Tums, Decadron, Hydrochlorothiazide, Protonix, Remdesivir Additional Notes: No documented skin breakdown. Will continue to monitor with same goal. Nutrition Monitoring and Evaluation: Follow up in 3 days.
[2020-11-10] MEDS: REMDESIVIR 100 MG/NS 250 ML 100 MG/250 ML BAG 250 MG IVPB (10:50)
--- NOTE | 2020-11-10 11:21 | PM.PNPUL ---
Progress Note: A&P Assessment and Plan (1) COVID-19: Code(s): U07.1 - COVID-19 Status: Acute (2) Pneumonia due to 2019 novel coronavirus: Code(s): U07.1 - COVID-19; J12.82 - Pneumonia due to coronavirus disease 2019 Status: Acute Assessment and Plan: - Continue Remdesivir for total of 10 days. Hold if ALT increases to greater than 10 times the upper limit of normal. - Continue dexamethasone for total of 10 days - continue high-flow oxygen to keep O2 saturations 92-96% - continued to encourage to do prone positioning for 12-16 hours a day as tolerated - continue DVT prophylaxis with Lovenox 40 mg subcu q.12 hours - continue Pulmicort 2 mg nebulized q.12 hours (3) Acute respiratory failure with hypoxia: Code(s): J96.01 - Acute respiratory failure with hypoxia Status: Acute Subjective Date/time seen: 11/10/20 11:21 Interval history: Currently on 60 L high-flow oxygen with 80% FiO2 he feels about the same coughing is a bit less. I encouraged him to attempt to do prone positioning as long as tolerated. He says he gets a lot of heartburn when he sleeps on his stomach so we will address that with medications today so they can proceed with prone positioning. Review of Systems Review of Systems: All systems reviewed & are unremarkable except as noted in HPI and below Exam Const: General: cooperative, healthy appearing, comfortable, no acute distress, well developed, alert, awake and Physically active Nutritional Appearance: average body habitus, well nourished and overweight Orientation/consciousness: oriented to person and oriented to place HENMT: Head: normal to inspection and atraumatic Eyes: General: appearance normal, both eyes and all related structures Neck: Neck: trachea midline and supple Resp: Effort & Inspection: normal respiratory effort and able to speak in complete sentences Auscultation: rales, wheezes and diminished lung sounds Cardio: Jugular venous distension: no JVD Rate: regular rate Rhythm: regular rhythm Heart sounds: S1 normal heart sound present and S2 normal heart sound present GI: Inspection: normal to inspection Percussion: Yes normal to percussion Skin: General skin exam: normal color and no rashes or lesions noted Neuro: General: oriented to person, oriented to place, oriented to time and patient oriented x3 Psych: Appearance: grossly normal and well kempt Mental Status: mental status grossly normal Objective Data Vital Signs Vital Signs: Vital Signs - 24 hr 11/09/20 12:00 11/09/20 12:40 11/09/20 12:59 Temperature 38.1 C H Pulse Rate 106 H 104 H Respiratory Rate 33 H Blood Pressure 148/93 H Pulse Oximetry 91 93 98 11/09/20 14:00 11/09/20 16:00 11/09/20 18:00 Temperature 37.6 C 37.8 C H Pulse Rate 100 104 H 103 H Respiratory Rate 34 H 27 H Blood Pressure 124/83 135/88 Pulse Oximetry 91 93 11/09/20 20:00 11/09/20 20:07 11/09/20 20:08 Temperature 37.4 C Pulse Rate 101 H 102 H 102 H Respiratory Rate 37 H 19 19 Blood Pressure 129/88 Pulse Oximetry 93 92 11/09/20 20:26 11/09/20 20:50 11/09/20 22:00 Temperature Pulse Rate 100 106 H 99 Respiratory Rate 28 H 33 H Blood Pressure Pulse Oximetry 94 11/10/20 00:00 11/10/20 02:00 11/10/20 04:00 Temperature 37.3 C 37.5 C Pulse Rate 95 87 88 Respiratory Rate 30 H 26 H Blood Pressure 144/87 H 120/79 Pulse Oximetry 94 94 11/10/20 06:00 11/10/20 07:41 11/10/20 07:45 Temperature Pulse Rate 82 84 88 Respiratory Rate 35 H 25 H Blood Pressure Pulse Oximetry 98 11/10/20 08:00 11/10/20 10:00 11/10/20 10:11 Temperature 36.8 C Pulse Rate 84 91 Respiratory Rate 22 H 20 Blood Pressure 121/81 Pulse Oximetry 93 95 96 Intake/Output Intake/Output: Intake & Output 11/07/20 11/08/20 11/09/20 11/10/20 23:59 23:59 23:59 23:59 Intake Total 970 750 Output Total 1375 700 Balance -405 50 Meds/Results
[2020-11-10] MEDS: ACETAMINOPHEN 325 MG TABLET PO (16:02)
[2020-11-10] MEDS: ALBUTEROL SULFATE (*SP) AEROSOL 1 PUFF 2 PUFF INHALATION (21:32)
[2020-11-11] VITALS (21 sets, daily range): BP systolic 113–127; BP diastolic 78–91; PULSE 71–98; RESP 15–32; TEMP 35.5–36.7; O2SAT 93–99
[2020-11-11] MEDS: SODIUM CHLORIDE NASAL GEL 14.1 GM 1 APPLIC NASAL ×2 (00:49→20:04)
[2020-11-11 05:33] LABS: Alanine Aminotransferase 454 U/L (4-50); Estimated CRCL calculation 162 ml/min; Estimated Glomerular Filt Rate > 60
[2020-11-11] MEDS: ENOXAPARIN 40 MG/0.4 ML SYRINGE SUB-Q ×2 (09:22→20:03)
[2020-11-11] MEDS: DEXAMETHASONE SOD PHOS INJ 4 MG/ML VIAL 6 MG IV PUSH (09:22)
[2020-11-11] MEDS: PANTOPRAZOLE SODIUM IV 40 MG VIAL IV PUSH (09:23)
[2020-11-11] MEDS: REMDESIVIR 100 MG/NS 250 ML 100 MG/250 ML BAG 250 MG IVPB (10:06)
[2020-11-11] MEDS: BUDESONIDE RESPULE NEB 0.5 MG/2 ML AMP 2 MG INHALATION ×2 (10:13→21:25)
--- NOTE | 2020-11-11 14:08 | PM.PNPUL ---
Progress Note: A&P Assessment and Plan (1) COVID-19: Code(s): U07.1 - COVID-19 Status: Acute (2) Pneumonia due to 2019 novel coronavirus: Code(s): U07.1 - COVID-19; J12.82 - Pneumonia due to coronavirus disease 2019 Status: Acute Assessment and Plan: - Continue Remdesivir for total of 10 days. Hold if ALT increases to greater than 10 times the upper limit of normal. I did see his ALT at 4:54 a.m. today but we will continue giving Remdisivir. If his ALT is greater than 500 by tomorrow we will discontinue it. He is clinically improving. - Continue dexamethasone for total of 10 days - continue high-flow oxygen to keep O2 saturations 92-96% - continued to encourage to do prone positioning for 12-16 hours a day as tolerated - continue DVT prophylaxis with Lovenox 40 mg subcu q.12 hours - continue Pulmicort 2 mg nebulized q.12 hours (3) Acute respiratory failure with hypoxia: Code(s): J96.01 - Acute respiratory failure with hypoxia Status: Acute Subjective Date/time seen: 11/11/20 14:08 Interval history: He is feeling much better today. He is up into the chair. He did do prone positioning yesterday for a few hours as tolerated. He is currently on high flow with 40 L of flow and 70% FiO2 and does not appear to be in any respiratory distress. His LFTs have increased unfortunately. This may be due to Remdesivir and due to the COVID-19. His ALT was 454 today but I have decided to continue Review of Systems Review of Systems: All systems reviewed & are unremarkable except as noted in HPI and below Exam Const: General: cooperative, healthy appearing, comfortable, no acute distress, well developed, alert, awake and Physically active Nutritional Appearance: average body habitus, well nourished and overweight Orientation/consciousness: oriented to person and oriented to place HENMT: Head: normal to inspection and atraumatic Eyes: General: appearance normal, both eyes and all related structures Neck: Neck: trachea midline and supple Resp: Effort & Inspection: normal respiratory effort and able to speak in complete sentences Auscultation: rales, wheezes and diminished lung sounds Cardio: Jugular venous distension: no JVD Rate: regular rate Rhythm: regular rhythm Heart sounds: S1 normal heart sound present and S2 normal heart sound present GI: Inspection: normal to inspection Percussion: Yes normal to percussion Skin: General skin exam: normal color and no rashes or lesions noted Neuro: General: oriented to person, oriented to place, oriented to time and patient oriented x3 Psych: Appearance: grossly normal and well kempt Mental Status: mental status grossly normal Objective Data Vital Signs Vital Signs: Vital Signs - 24 hr 11/10/20 16:00 11/10/20 18:00 11/10/20 20:00 Temperature 36.6 C Pulse Rate 89 85 84 Respiratory Rate 22 H Blood Pressure 123/87 Pulse Oximetry 95 11/10/20 21:15 11/10/20 21:54 11/10/20 22:00 Temperature 36.7 C Pulse Rate 92 93 95 Respiratory Rate 22 H 26 H Blood Pressure 127/85 Pulse Oximetry 95 11/10/20 22:03 11/10/20 22:05 11/11/20 00:00 Temperature Pulse Rate 94 91 81 Respiratory Rate 20 20 Blood Pressure Pulse Oximetry 94 11/11/20 00:45 11/11/20 02:00 11/11/20 04:00 Temperature 36.5 C Pulse Rate 82 77 71 Respiratory Rate 15 Blood Pressure 127/81 Pulse Oximetry 93 11/11/20 04:45 11/11/20 05:33 11/11/20 06:00 Temperature 36.7 C Pulse Rate 74 74 72 Respiratory Rate 24 H 24 H Blood Pressure 115/78 Pulse Oximetry 96 96 11/11/20 08:00 11/11/20 10:00 11/11/20 10:16 Temperature 35.5 C L Pulse Rate 78 79 88 Respiratory Rate 30 H 24 H Blood Pressure 120/91 H Pulse Oximetry 96 98 11/11/20 10:42 11/11/20 12:00 Temperature Pulse Rate 90 76 Respiratory Rate 24 H 32 H Blood Pressure Pulse Oximetry 95 Intake/Output Intake/Output: Intake & Output 0
--- NOTE | 2020-11-11 16:27 | PM.IMPN ---
Progress Note: A&P Assessment and Plan (1) Acute respiratory failure with hypoxia: Code(s): J96.01 - Acute respiratory failure with hypoxia Status: Acute Assessment and Plan: Likely secondary to worsening COVID-19 infection. CXR demonstrates moderate to large bilateral acute airspace disease consistent with COVID-19 pneumonia. Oxygen requirements increased rapidly from 2 liter on arrival to the emergency department to Airvo but with have been able to taper also... CTA no pulmonary embolism Continue supplemental oxygen as needed to maintain oxygen saturation >90% Continue treatment for COVID pneumonia. (2) Pneumonia due to 2019 novel coronavirus: Code(s): U07.1 - COVID-19; J12.82 - Pneumonia due to coronavirus disease 2019 Status: Acute Assessment and Plan: Symptoms started 10/30/20 and he tested positive 10/31/20. He developed worsening cough, pleuritic pain, and dyspnea 3 days prior to admission which prompted return to the emergency department. Continue dexamethasone (day 4/10 - initiated 11/08/20) remdesivir day 3. (day 1 - initiated 11/09/20) -LFTs elevated initially and hepatitis profile negative. Continue to monitor and DC if exceeds 10 times upper limits of normal Monitor acute phase reactants repeat a.m. 11/12 Continue supportive care with tylenol for fever, albuterol MDI, expectorant, and incentive spirometry Continue supplemental oxygen as needed to maintain oxygen saturation >90% (3) Transaminitis: Code(s): R74.01 - Elevation of levels of liver transaminase levels Status: Acute Assessment and Plan: LFTs are elevated, likely secondary to COVID-19. Hepatitis panel is negative as above. Bilirubin 1.9 but direct bilirubin 0.0. ALT upper limit of normal today and as per pulmonology know if greater than 501/31 will discontinue, has clinically improved tenderness receive 3 doses. (4) Hypertension: Code(s): I10 - Essential (primary) hypertension Status: Acute Assessment and Plan: Blood pressures are at target. And evaluated today 11/11 Continue hydrochlorothiazide and amlodipine Continue to monitor and adjust treatment as necessary (5) DVT prophylaxis: Code(s): Z29.9 - Encounter for prophylactic measures, unspecified Status: Acute Assessment and Plan: Lovenox 40 mg q.12 hours Subjective Date/time seen: 11/11/20 16:27 Interval history: Date of visit 11/11/20 30-year-old hypertensive male who tested positive for COVID 10/31 and presented to ER 11/09 with worsening symptoms. He desaturated to 87% was admitted for treatment of the same. Currently receiving Airvo high-flow oxygen with dexamethasone and remdesivir. He does feel slightly better today. Exam Narrative: Exam Narrative: Blood pressure 114/82 pulse is 74 respirations 22 per minute saturating 96% with 40 L/m/FiO2 60% General: Very pleasant, in no acute distress lying comfortably admit HEENMT:. Sclera anicteric. Conjunctivae without injection. Neck: Supple Cardiac: Regular rhythm. Lungs: . Respirations are even and non-labored and he is able to speak in full sentences without difficulty. Lungs have coarse rales at the bases bilaterally. No wheezes. Abdomen: Bowel sounds are normoactive. Abdomen is soft, and non-tender. Extremities. No lower extremity edema. Pedal and radial pulses 2+. Neurological: Alert. No focal neurological deficits noted to casual conversation. Speech is clear. Skin: Warm and dry. Psychiatric: Judgment and insight intact. Pleasant mood and appropriate affect. Objective Data Vital Signs Vital Signs: Vital Signs - 24 hr 11/10/20 18:00 11/10/20 20:00 11/10/20 21:15 Temperature 36.7 C Pulse Rate 85 84 92 Respiratory Rate 22 H Blood Pressure 127/85 Pulse Oximetry 95 11/10/20 21:54 11/10/20 22:00 11/10/20 22:03 Temperature Pulse Rate 93 95 94 Respiratory Rate 26 H 20 Blood Pressure
[2020-11-11] MEDS: guaiFENesin 12 HR 600 MG TABCR 1200 MG PO (20:03)
[2020-11-12] VITALS (18 sets, daily range): BP systolic 105–120; BP diastolic 66–81; PULSE 65–88; RESP 16–25; TEMP 36.1–36.8; O2SAT 93–99
[2020-11-12 05:15] LABS: Basophils Percent Auto 0.3 % (0.2-1.2); Eosinophils Absolute Auto 0.1 K/mm3 (0-0.3); Eosinophils Percent Auto 0.5 % (0-4.4); Hematocrit 41.6 % (42.0-52.0); Hemoglobin 14.1 g/dL (14.0-18.0); Immature Granulocyte Absolute 0.18 K/mm3 (0.00-0.031); Immature Granulocyte Percent A 1.6 % (0-0.5); Lymphocytes Percent Auto 15.4 % (18.3-44.2); Mean Corpuscular HGB Conc 33.9 g/dl (32-36); Mean Corpuscular Hemoglobin 30.7 pg (26-34); Mean Corpuscular Volume 90.6 fl (80-100); Mean Platelet Volume 9.8 fl (7.4-10.4); Monocytes Absolute Auto 0.6 K/mm3 (0.1-0.6); Monocytes Percent Auto 5.7 % (2.6-8.5); Neutrophils Absolute Auto 8.4 K/mm3 (1.3-6.7); Neutrophils Percent Auto 76.5 % (45.5-73.1); Platelet Count Result 343 k/mm3 (150-375); Red Blood Count 4.59 M/mm3 (4.6-6.20); Red Cell Distribution Width 11.8 % (11.5-14.5)
[2020-11-12 05:25] LABS: D Dimer 0.31 ug/mL (<0.48)
[2020-11-12 05:28] LABS: Alanine Aminotransferase 744 U/L (4-50); Albumin Level 3.7 g/dL (3.5-5.1); Alkaline Phosphatase 277 U/L (38-126); Anion Gap 4 mmol/L (8-16); Aspartate Amino Transferase 321 U/L (17-59); Bilirubin,Total 1.4 mg/dL (0.2-1.3); Blood Urea Nitrogen 28 mg/dL (9-20); CRP 1.4 mg/dL (<1.0); Calcium 8.2 mg/dL (8.4-10.2); Carbon Dioxide 26 mmol/L (22-30); Chloride 104 mmol/L (98-107); Estimated CRCL calculation 219 ml/min; Estimated Glomerular Filt Rate > 60; Glucose 93 mg/dL (75-110); Lactate Dehydrogenase 1280 U/L (313-618); Potassium 4.1 mmol/L (3.4-5.0); Sodium 134 mmol/L (137-145)
[2020-11-12 06:38] LABS: Vitamin D 25 Hydroxy 25.1 ng/mL
[2020-11-12] MEDS: PANTOPRAZOLE SODIUM IV 40 MG VIAL IV PUSH (07:26)
[2020-11-12] MEDS: ENOXAPARIN 40 MG/0.4 ML SYRINGE SUB-Q ×2 (07:26→21:54)
[2020-11-12] MEDS: DEXAMETHASONE SOD PHOS INJ 4 MG/ML VIAL 6 MG IV PUSH (07:26)
[2020-11-12] MEDS: BUDESONIDE RESPULE NEB 0.5 MG/2 ML AMP 2 MG INHALATION ×2 (08:09→20:19)
--- NOTE | 2020-11-12 12:59 | PC.NURSE ---
This patient, Slava Morrison, was received from [ICU] on 11/12/20 at 1145. Patient/family oriented to unit policies and routines
--- NOTE | 2020-11-12 16:58 | PM.IMPN ---
Progress Note: A&P Assessment and Plan (1) Acute respiratory failure with hypoxia: Code(s): J96.01 - Acute respiratory failure with hypoxia Status: Acute Assessment and Plan: Likely secondary to worsening COVID-19 infection. CXR demonstrates moderate to large bilateral acute airspace disease consistent with COVID-19 pneumonia. Oxygen requirements increased rapidly from 2 liter on arrival to the emergency department to Airvo but tapered rapidly last 24 hours... CTA no pulmonary embolism Continue supplemental oxygen as needed to maintain oxygen saturation >90% Continue treatment for COVID pneumonia. (2) Pneumonia due to 2019 novel coronavirus: Code(s): U07.1 - COVID-19; J12.82 - Pneumonia due to coronavirus disease 2019 Status: Acute Assessment and Plan: Symptoms started 10/30/20 and he tested positive 10/31/20. He developed worsening cough, pleuritic pain, and dyspnea 3 days prior to admission which prompted return to the emergency department. Continue dexamethasone (day 5/10 - initiated 11/08/20) remdesivir . (day 1 - initiated 11/09/20) -LFTs elevated initially and hepatitis profile negative. stopped today with ALT >10 times normal at 744 after 3 day rx was at end of window of indication for to start with but gave with Pul recommendation and fact deteriorated rapidly. Monitor acute phase reactants and stable to decreased today Continue supportive care with tylenol( low dose with elevated lfts) for fever, albuterol MDI, expectorant, and incentive spirometry, pronining Continue supplemental oxygen as needed to maintain oxygen saturation >90% (3) Transaminitis: Code(s): R74.01 - Elevation of levels of liver transaminase levels Status: Acute Assessment and Plan: LFTs are elevated, likely secondary to COVID-19. Hepatitis panel is negative as above. Bilirubin 1.4 today ALT 744 today so remdesivir d/hilary after 3 doses Us RUQ steatosis only (4) Hypertension: Code(s): I10 - Essential (primary) hypertension Status: Acute Assessment and Plan: Blood pressures are at target. And evaluated today 11/11 Continue hydrochlorothiazide and amlodipine Continue to monitor and adjust treatment as necessary (5) DVT prophylaxis: Code(s): Z29.9 - Encounter for prophylactic measures, unspecified Status: Acute Assessment and Plan: Lovenox 40 mg q.12 hours Subjective Date/time seen: 11/12/20 16:58 Interval history: Date of visit 11/12/20 30-year-old hypertensive male who tested positive for COVID 10/31 and presented to ER 11/09 with worsening symptoms. He desaturated to 87% was admitted for treatment of the same. Currently receiving Airvo high-flow oxygen with dexamethasone . He does feel quite a bit better today. States proning position helpded Exam Narrative: Exam Narrative: Blood pressure 110/80 pulse is 74 respirations 18 per minute saturating 93% with 7 L/m/FiO2 47% General: Very pleasant, in no acute distress sitting in chair HEENMT:. Sclera anicteric. Conjunctivae without injection. Neck: Supple Cardiac: Regular rhythm. Lungs: . Respirations non labored. Lungs have coarse rales at the bases bilaterally. No wheezes. Abdomen: Bowel sounds are normoactive. Abdomen is soft, and non-tender. Extremities. No lower extremity edema. Pedal and radial pulses 2+. Neurological: Alert. No focal neurological deficits . Speech is clear. Skin: Warm and dry. Psychiatric: Judgment and insight intact. Pleasant mood and appropriate affect. Objective Data Vital Signs Vital Signs: Vital Signs - 24 hr 11/11/20 17:41 11/11/20 18:00 11/11/20 20:00 Temperature 36.7 C Pulse Rate 98 92 87 Respiratory Rate 24 H 23 H Blood Pressure 115/79 Pulse Oximetry 96 97 11/11/20 21:26 11/11/20 21:31 11/11/20 22:00 Temperature Pulse Rate 78 87 85 Respiratory Rate 28 H 22 H Blood Pressure Pulse Oxime
[2020-11-12] MEDS: ERGOCALCIFEROL 50,000 UNIT CAPSULE 50000 UNITS PO (17:28)
--- NOTE | 2020-11-12 20:37 | PM.PNPUL ---
Progress Note: A&P Assessment and Plan (1) COVID-19: Code(s): U07.1 - COVID-19 Status: Acute (2) Pneumonia due to 2019 novel coronavirus: Code(s): U07.1 - COVID-19; J12.82 - Pneumonia due to coronavirus disease 2019 Status: Acute Assessment and Plan: - Remedisivir held due to ALT of > 700 - Continue dexamethasone for total of 10 days - continue weaning oxygen to keep O2 saturations 92-96% - continued to encourage to do prone positioning for 12-16 hours a day as tolerated - continue DVT prophylaxis with Lovenox 40 mg subcu q.12 hours - continue Pulmicort 2 mg nebulized q.12 hours (3) Acute respiratory failure with hypoxia: Code(s): J96.01 - Acute respiratory failure with hypoxia Status: Acute Assessment and Plan: improving oxygenation, has been weaned to nasal cannula Subjective Date/time seen: 11/12/20 20:37 Interval history: He is feeling much better today and has been wean to nasal cannula 7 liters from high flow and being transferred to the medical [facility]. Unfortunately his ALT has increased to > 700 and Remdesivir has been discontinued after three days. Review of Systems Review of Systems: All systems reviewed & are unremarkable except as noted in HPI and below Exam Const: General: cooperative, healthy appearing, comfortable, no acute distress, well developed, alert, awake and Physically active Nutritional Appearance: average body habitus, well nourished and overweight Orientation/consciousness: oriented to person and oriented to place HENMT: Head: normal to inspection and atraumatic Eyes: General: appearance normal, both eyes and all related structures Neck: Neck: trachea midline and supple Resp: Effort & Inspection: normal respiratory effort and able to speak in complete sentences Auscultation: rales, wheezes and diminished lung sounds Cardio: Jugular venous distension: no JVD Rate: regular rate Rhythm: regular rhythm Heart sounds: S1 normal heart sound present and S2 normal heart sound present GI: Inspection: normal to inspection Percussion: Yes normal to percussion Skin: General skin exam: normal color and no rashes or lesions noted Neuro: General: oriented to person, oriented to place, oriented to time and patient oriented x3 Psych: Appearance: grossly normal and well kempt Mental Status: mental status grossly normal Objective Data Vital Signs Vital Signs: Vital Signs - 24 hr 11/11/20 21:26 11/11/20 21:31 11/11/20 22:00 Temperature Pulse Rate 78 87 85 Respiratory Rate 28 H 22 H Blood Pressure Pulse Oximetry 98 11/12/20 00:00 11/12/20 00:45 11/12/20 02:00 Temperature 36.4 C L Pulse Rate 70 77 70 Respiratory Rate 24 H Blood Pressure 108/77 Pulse Oximetry 94 11/12/20 04:00 11/12/20 05:03 11/12/20 06:00 Temperature 36.8 C Pulse Rate 82 73 73 Respiratory Rate 25 H 20 Blood Pressure 105/76 Pulse Oximetry 95 96 11/12/20 08:00 11/12/20 08:09 11/12/20 08:10 Temperature 36.1 C L Pulse Rate 88 84 Respiratory Rate 17 24 H Blood Pressure 107/66 Pulse Oximetry 97 98 11/12/20 08:45 11/12/20 09:00 11/12/20 10:00 Temperature Pulse Rate 86 86 88 Respiratory Rate 24 H 20 20 Blood Pressure Pulse Oximetry 94 94 11/12/20 12:00 11/12/20 16:00 11/12/20 17:32 Temperature 36.3 C L 36.2 C L Pulse Rate 78 87 78 Respiratory Rate 16 16 16 Blood Pressure 111/81 119/75 Pulse Oximetry 93 94 96 11/12/20 20:19 11/12/20 20:20 Temperature Pulse Rate 84 84 Respiratory Rate 20 20 Blood Pressure Pulse Oximetry 95 Intake/Output Intake/Output: Intake & Output 11/09/20 11/10/20 11/11/20 11/12/20 23:59 23:59 23:59 23:59 Intake Total 970 1240 2000 1180 Output Total 1375 2050 1875 1125 Balance -405 810 125 55 Meds/Results Medications: Active Medications Generic Name Dose Route Start Last Admin Trade Name Freq PRN Reason Stop Dose Admin Acetaminophen 325 mg 10/14
[2020-11-12] MEDS: guaiFENesin 12 HR 600 MG TABCR 1200 MG PO (21:54)
[2020-11-12] MEDS: SODIUM CHLORIDE NASAL GEL 14.1 GM 1 APPLIC NASAL (21:55)
[2020-11-13] VITALS (20 sets, daily range): BP systolic 121–130; BP diastolic 50–81; PULSE 82–96; RESP 16–20; TEMP 36.2–36.9; O2SAT 89–97
[2020-11-13 06:43] LABS: Alanine Aminotransferase 708 U/L (4-50); Albumin Level 3.6 g/dL (3.5-5.1); Alkaline Phosphatase 229 U/L (38-126); Aspartate Amino Transferase 183 U/L (17-59); Estimated CRCL calculation 143 ml/min; Estimated Glomerular Filt Rate > 60
[2020-11-13] MEDS: DEXAMETHASONE SOD PHOS INJ 4 MG/ML VIAL 6 MG IV PUSH (08:18)
[2020-11-13] MEDS: ENOXAPARIN 40 MG/0.4 ML SYRINGE SUB-Q ×2 (08:18→20:15)
[2020-11-13] MEDS: amLODIPine BESYLATE 5 MG TABLET 10 MG PO (08:18)
[2020-11-13] MEDS: PANTOPRAZOLE SODIUM IV 40 MG VIAL IV PUSH (08:19)
[2020-11-13] MEDS: guaiFENesin 12 HR 600 MG TABCR 1200 MG PO ×2 (08:19→20:15)
[2020-11-13] MEDS: BUDESONIDE RESPULE NEB 0.5 MG/2 ML AMP 2 MG INHALATION ×2 (09:15→19:57)
--- NOTE | 2020-11-13 09:48 | PM.PNPUL ---
Progress Note: A&P Assessment and Plan (1) Pneumonia due to 2019 novel coronavirus: Code(s): U07.1 - COVID-19; J12.82 - Pneumonia due to coronavirus disease 2019 Status: Acute Assessment and Plan: - Remedisivir held after 3 doses due to ALT of > 700 - Continue dexamethasone 6 mg for total of 10 days, switch to PO today. - continue weaning oxygen to keep O2 saturations 92-96% - continued to encourage to do prone positioning for 12-16 hours a day as tolerated - continue DVT prophylaxis with Lovenox 40 mg subcu q.12 hours - continue Pulmicort 2 mg nebulized q.12 hours (2) Acute respiratory failure with hypoxia: Code(s): J96.01 - Acute respiratory failure with hypoxia Status: Acute Assessment and Plan: improving oxygenation, has been weaned to nasal cannula 7 L and wean as tolerated. Once on 6 L NC perform home O2 assessment. Possible discharge on 11/14 if oxygenation adequate on 6 L or less. Subjective Date/time seen: 11/13/20 09:48 Interval history: 11/12 He is feeling much better today and has been wean to nasal cannula 7 liters from high flow and being transferred to the medical [facility]. Unfortunately his ALT has increased to > 700 and Remdesivir has been discontinued after three days. 11/13 Continues to slowly improve, states breathing is good, on 7 L NC with saturations 95%, Review of Systems Review of Systems: All systems reviewed & are unremarkable except as noted in HPI and below Eyes: Eyes: Reports no additional eye complaints ENT: Reports system reviewed and no additional complaints, except as documented and Reports sinus pressure Cardiovascular: Cardiovascular: Reports no additional cardiovascular complaints Respiratory: Respiratory: Reports no additional respiratory complaints Gastrointestinal: Gastrointestinal: Reports no additional gastrointestinal complaints Musculoskeletal: Musculoskeletal: Reports no additional musculoskeletal complaints Integumentary/Breasts: Skin/Breast: Reports system reviewed and no additional complaints, except as docu Neurologic: Reports system reviewed and no additional complaints, except as documented and Reports behavioral changes Psychiatric: Psychiatric: Reports no additional psychiatric complaints and Reports behavioral changes Endocrine: Endocrine: Reports no additional endocrine complaints Exam Const: General: cooperative and healthy appearing Orientation/consciousness: oriented to person, oriented to place and oriented to time HENMT: Head: normal to inspection Ears: hearing grossly normal bilaterally Mouth: Yes Normal oral and palatal mucosa present Throat: tonsils absent Eyes: General: appearance normal, both eyes and all related structures Neck: Neck: normal visual inspection Chest: Chest palpation & inspection: normal inspection of the chest Resp: Effort & Inspection: normal respiratory effort Auscultation: crackles (Right > left), no rales, no rhonchi and no wheezes Cardio: Jugular venous distension: no JVD GI: Inspection: normal to inspection Skin: General skin exam: normal color Neuro: General: oriented to person, oriented to place and oriented to time Extrem: General: normal to inspection Psych: Appearance: grossly normal Objective Data Vital Signs Vital Signs: Vital Signs - 24 hr 11/12/20 10:00 11/12/20 12:00 11/12/20 16:00 Temperature 36.3 C L 36.2 C L Pulse Rate 88 78 87 Respiratory Rate 20 16 16 Blood Pressure 111/81 119/75 Pulse Oximetry 94 93 94 11/12/20 17:32 11/12/20 20:00 11/12/20 20:19 Temperature 36.8 C Pulse Rate 78 88 84 Respiratory Rate 16 20 20 Blood Pressure 120/80 Pulse Oximetry 96 98 95 11/12/20 20:20 11/13/20 00:00 11/13/20 04:00 Temperature 36.2 C L 36.2 C L Pulse Rate 84 84 86 Respiratory Rate 20 18 18 Blood Pressure 121/75 128/72 Pulse Oximetry 96 95 11/13/20 09:16 11/13/20 09:26 Temperature Pulse Rate 85 86 Respiratory Rate 20 20 Blood Pressur
--- NOTE | 2020-11-13 10:47 | PM.IMPN ---
Progress Note: A&P Assessment and Plan (1) Acute respiratory failure with hypoxia: Code(s): J96.01 - Acute respiratory failure with hypoxia Status: Acute Assessment and Plan: Likely secondary to worsening COVID-19 infection. CXR demonstrates moderate to large bilateral acute airspace disease consistent with COVID-19 pneumonia. Oxygen requirements increased rapidly from 2 liter on arrival to the emergency department to Airvo. CTA showing no pulmonary embolism. O2 tapered rapidly last 24 hours and now down to 5L. Continue supplemental oxygen as needed to maintain oxygen saturation >90% and wean as tolerated. Continue treatment for COVID pneumonia. Home O2 evaluation in the morning. If requirement remains stable, plan discharge tomorrow. (2) Pneumonia due to 2019 novel coronavirus: Code(s): U07.1 - COVID-19; J12.82 - Pneumonia due to coronavirus disease 2019 Status: Acute Assessment and Plan: Symptoms started 10/30/20 and he tested positive 10/31/20. He developed worsening cough, pleuritic pain, and dyspnea 3 days prior to admission which prompted return to the emergency department. Continue dexamethasone (day 03/22 - initiated 11/08/20). Treated with remdesivir but stopped after 3 doses due to elevated LFTs. Continue supportive care. Continue supplemental oxygen as needed to maintain oxygen saturation >90% and wean as toelrated (3) Transaminitis: Code(s): R74.01 - Elevation of levels of liver transaminase levels Status: Acute Assessment and Plan: LFTs are elevated, likely secondary to COVID-19 possibly made worse with the Remdesivir. Hepatitis panel is negative. Bilirubin normal and AST/ALT are trending down. RUQ US showing steatosis only. Check lipid panel (4) Hypertension: Code(s): I10 - Essential (primary) hypertension Status: Acute Assessment and Plan: Blood pressures are at target. Evaluated today 11/13. Continue hydrochlorothiazide and amlodipine. Continue to monitor and adjust treatment as necessary (5) DVT prophylaxis: Code(s): Z29.9 - Encounter for prophylactic measures, unspecified Status: Acute Assessment and Plan: Lovenox 40 mg q.12 hours Subjective Date/time seen: 11/13/20 10:47 Interval history: Date of visit 11/13/20 30yo male with HTN who tested positive for COVID 10/31 and presented to ER 11/09 with worsening symptoms. He desaturated to 87% was admitted for treatment of the same. Assuming care. Chart reviewed. Patient has been weaned to NC now. He feels better. Less SOB or ARROYO. Cough improved. Eating normally. Exam Narrative: Exam Narrative: AF 125/76 86 20 93% 5L Gen - NARD lying almost flat in bed Chest - few scattered rhonchi. nml RR CV - RRR S1/S2 Abd - soft, NT/ND, +BS Ext - no pedal edema Neuro - nonfocal Skin - warm and dry Objective Data Vital Signs Vital Signs: Vital Signs - 24 hr 11/12/20 12:00 11/12/20 16:00 11/12/20 17:32 Temperature 97.4 F L 97.1 F L Pulse Rate 78 87 78 Respiratory Rate 16 16 16 Blood Pressure 111/81 119/75 Pulse Oximetry 93 94 96 11/12/20 20:00 11/12/20 20:19 11/12/20 20:20 Temperature 98.2 F Pulse Rate 88 84 84 Respiratory Rate 20 20 20 Blood Pressure 120/80 Pulse Oximetry 98 95 11/13/20 00:00 11/13/20 04:00 11/13/20 08:00 Temperature 97.1 F L 97.2 F L 98.4 F Pulse Rate 84 86 83 Respiratory Rate 18 18 16 Blood Pressure 121/75 128/72 125/76 Pulse Oximetry 96 95 96 11/13/20 09:16 11/13/20 09:26 Temperature Pulse Rate 85 86 Respiratory Rate 20 20 Blood Pressure Pulse Oximetry 93 Intake/Output Intake/Output: Intake & Output 11/10/20 11/11/20 11/12/20 11/13/20 23:59 23:59 23:59 23:59 Intake Total 1240 1999 1180 1000 Output Total 2049 1875 1125 500 Balance -810 125 55 500 Meds/Results Medications: Active Medications Generic Name Dose Route Start Last Admin Trade Name Freq PRN Reason Stop
--- NOTE | 2020-11-13 12:12 | PCDIET ---
Nutrition Follow-Up Complete: Inadequate oral intake related to COVID-19 pneumonia as evidenced by no intake at present. Goal: Meet estimated caloric needs. Pt current nutrition is heart healthy diet. Last recorded weight is 109 kg. Recommend reweighing patient. Bowel Motility: No recorded bowel movement. Labs Reviewed: Hct 41.6, Na 134, BUN 28, Cr 0.5 Meds Noted: proventil, Norvasc, decadron, lovenox, hydrochlorothiazide Additional Notes: Spoke with patient on the phone due to COVID-19. Patient reports having a great appetite consuming 75%-100% of meals and enjoying the ensure but only wants chocolate ensures sent up. Monitor labs, medications, weight, and oral intake every 5 days.
--- NOTE | 2020-11-13 13:15 | PCNSR ---
On 11/13/20, the student,Aleena Richardson, provided care and completed [facility] documentation on this patient. I have reviewed the student's documentation and agree with the findings.
--- NOTE | 2020-11-13 15:31 | PCRCNOTE ---
HOME O2 EVAL COMPLETE, NO REQUIREMENTS
[2020-11-13] MEDS: SODIUM CHLORIDE NASAL GEL 14.1 GM 1 APPLIC NASAL (20:15)
[2020-11-14 04:00] VITALS: BP 123/82; PULSE 81; RESP 20; TEMP 36.7; O2SAT 90
[2020-11-14 06:14] LABS: Alanine Aminotransferase 662 U/L (4-50); Albumin Level 3.8 g/dL (3.5-5.1); Alkaline Phosphatase 210 U/L (38-126); Anion Gap 6 mmol/L (8-16); Aspartate Amino Transferase 168 U/L (17-59); Bilirubin Indirect 0.5 mg/dL (0-1.1); Bilirubin,Total 0.9 mg/dL (0.2-1.3); Blood Urea Nitrogen 20 mg/dL (9-20); Calcium 8.7 mg/dL (8.4-10.2); Carbon Dioxide 30 mmol/L (22-30); Chloride 101 mmol/L (98-107); Cholesterol 113 mg/dL (0-200); Estimated CRCL calculation 162 ml/min; Estimated Glomerular Filt Rate > 60; Glucose 110 mg/dL (75-110); HDL Direct 16 mg/dL; Potassium 4.4 mmol/L (3.4-5.0); Sodium 137 mmol/L (137-145); Triglycerides 365 mg/dL (<150)
[2020-11-14 06:25] LABS: LDL Cholesterol Direct 40 mg/dL
[2020-11-14 08:00] VITALS: BP 118/77; PULSE 84; RESP 16; TEMP 36.7; O2SAT 92
[2020-11-14] MEDS: PANTOPRAZOLE SODIUM IV 40 MG VIAL IV PUSH (09:48)
[2020-11-14] MEDS: guaiFENesin 12 HR 600 MG TABCR 1200 MG PO (09:48)
[2020-11-14] MEDS: DEXAMETHASONE SOD PHOS INJ 4 MG/ML VIAL 6 MG BY MOUTH (09:49)
[2020-11-14] MEDS: hydroCHLOROthiazide 25 MG TABLET PO (09:49)
[2020-11-14] MEDS: amLODIPine BESYLATE 5 MG TABLET 10 MG PO (09:49)
[2020-11-14] MEDS: ENOXAPARIN 40 MG/0.4 ML SYRINGE SUB-Q (09:49)
[2020-11-14] MEDS: BUDESONIDE RESPULE NEB 0.5 MG/2 ML AMP 2 MG INHALATION (10:06)
[2020-11-14 10:07] VITALS: PULSE 88; RESP 20; O2SAT 92
[2020-11-14 10:35] VITALS: PULSE 100; RESP 20
--- NOTE | 2020-11-14 11:14 | PM.PNPUL ---
Progress Note: A&P Assessment and Plan (1) Pneumonia due to 2019 novel coronavirus: Code(s): U07.1 - COVID-19; J12.82 - Pneumonia due to coronavirus disease 2019 Status: Acute Assessment and Plan: - Remedisivir held after 3 doses due to ALT of > 700 - Continue dexamethasone 6 mg for total of 10 days, switched to PO 11/13. - On room air and sats 90-92%, home O2 assessment prior to discharge. - continue DVT prophylaxis with Lovenox 40 mg subcu q.12 hours - Discontinue Pulmicort on discharge from hospital. Follow up with primary Ebony Medina with chest Xray at 6 weeks. (2) Acute respiratory failure with hypoxia: Code(s): J96.01 - Acute respiratory failure with hypoxia Status: Acute Assessment and Plan: improving oxygenation, has been weaned to nasal cannula 7 L and wean as tolerated on 11/13. On 11/14 he is on room air with sats 90-92%. Perform home O2 assessment. Discharge on 11/14 afer home O2 assessment. Subjective Date/time seen: 11/14/20 11:14 Interval history: Interval history: 11/12 He is feeling much better today and has been wean to nasal cannula 7 liters from high flow and being transferred to the medical burt. Unfortunately his ALT has increased to > 700 and Remdesivir has been discontinued after three days. 11/13 Continues to slowly improve, states breathing is good, on 7 L NC with saturations 95% 11/14 Improving today, CXR with continued bilateral infiltrates in lungs, on room air saturations 90-92%. LFTs improved but still high Review of Systems Review of Systems: All systems reviewed & are unremarkable except as noted in HPI and below Eyes: Eyes: Reports no additional eye complaints ENT: Reports system reviewed and no additional complaints, except as documented and Reports sinus pressure Cardiovascular: Cardiovascular: Reports no additional cardiovascular complaints Respiratory: Respiratory: Reports no additional respiratory complaints Gastrointestinal: Gastrointestinal: Reports no additional gastrointestinal complaints Musculoskeletal: Musculoskeletal: Reports no additional musculoskeletal complaints Integumentary/Breasts: Skin/Breast: Reports system reviewed and no additional complaints, except as docu Neurologic: Reports system reviewed and no additional complaints, except as documented and Reports behavioral changes Psychiatric: Psychiatric: Reports no additional psychiatric complaints and Reports behavioral changes Endocrine: Endocrine: Reports no additional endocrine complaints Exam Const: General: cooperative and healthy appearing Orientation/consciousness: oriented to person, oriented to place and oriented to time HENMT: Head: normal to inspection Ears: hearing grossly normal bilaterally Mouth: Yes Normal oral and palatal mucosa present Throat: tonsils absent Eyes: General: appearance normal, both eyes and all related structures Neck: Neck: normal visual inspection Chest: Chest palpation & inspection: normal inspection of the chest Resp: Effort & Inspection: normal respiratory effort Auscultation: crackles (Right > left), no rales, no rhonchi and no wheezes Cardio: Jugular venous distension: no JVD GI: Inspection: normal to inspection Skin: General skin exam: normal color Neuro: General: oriented to person, oriented to place and oriented to time Extrem: General: normal to inspection Psych: Appearance: grossly normal Objective Data Vital Signs Vital Signs: Vital Signs - 24 hr 11/13/20 11:50 11/13/20 12:00 11/13/20 12:05 Temperature 36.6 C Pulse Rate 88 Respiratory Rate 16 Blood Pressure 123/77 Pulse Oximetry 97 97 93 11/13/20 12:25 11/13/20 13:05 11/13/20 14:30 Temperature Pulse Rate 85 Respiratory Rate Blood Pressure Pulse Oximetry 95 92 92 11/13/20 14:35 11/13/20 14:45 11/13/20 16:00 Temperature 36.9 C Pulse Rate 87 84 89 Respiratory Rate 16 Blood Pressure 123/75 Pulse Oximetry 89 L 92 92
[2020-11-14 12:00] VITALS: BP 115/73; PULSE 92; RESP 18; TEMP 36.9; O2SAT 92
--- NOTE | 2020-11-14 14:41 | PM.DS ---
DS: Admitting Diagnosis Admitting Diagnosis Admitting Diagnosis: SOB DS: Discharge Diagnosis Discharge Diagnosis (1) Acute respiratory failure with hypoxia: Code(s): J96.01 - Acute respiratory failure with hypoxia Status: Acute Assessment and Plan: Likely secondary to worsening COVID-19 infection. CXR demonstrates moderate to large bilateral acute airspace disease consistent with COVID-19 pneumonia. Oxygen requirements increased rapidly from 2 liter on arrival to the emergency department to Airvo. CTA showing no pulmonary embolism. O2 tapered rapidly last 24-48 hours and now down to room air. Weaned to room air and home evaluation showing no requirements at rest or with activity. (2) Pneumonia due to 2019 novel coronavirus: Code(s): U07.1 - COVID-19; J12.82 - Pneumonia due to coronavirus disease 2019 Status: Acute Assessment and Plan: Symptoms started 10/30/20 and he tested positive 10/31/20. He developed worsening cough, pleuritic pain, and dyspnea 3 days prior to admission which prompted return to the emergency department. Treated with dexamethasone (initiated 11/08/20). Treated with remdesivir but stopped after 3 doses due to elevated LFTs. Patient on room air now. He was educated about the need to self-quarantine for a total of 20 days. He voices understanding of this. (3) Transaminitis: Code(s): R74.01 - Elevation of levels of liver transaminase levels Status: Acute Assessment and Plan: LFTs are elevated, likely secondary to COVID-19 possibly made worse with the Remdesivir. Hepatitis panel is negative. Bilirubin normal and AST/ALT are trending down. RUQ US showing steatosis only. (4) Hypertension: Code(s): I10 - Essential (primary) hypertension Status: Acute Assessment and Plan: Blood pressures are at target. We continue hydrochlorothiazide and amlodipine. DS: Summary Hospital Course Reason for hospitalization: 30-year-old male diagnosed with COVID on 10/31/2020 presents with complaints of increasing shortness of breath. Please see H&P for details. Hospital Course: Please see above for details of hospital course. Time Spent with Patient Time attestation: Total time spent providing and/or coordinating discharge services: 38 minutes Time spent: Greater than 30 minutes Exam Narrative: Exam Narrative: AF98.4 115/73 92 18 92% ra Gen - NARD lying almost flat in bed Chest -decreased breath sounds in the bases bilaterally otherwise clear. CV - RRR S1/S2 Abd - soft, NT/ND, +BS Ext - no pedal edema Neuro - nonfocal Skin - warm and dry DS: Data Data Completed and Pending Labs on day of discharge: Labs from last 24 hours 11/14/20 05:35 Sodium 137 Potassium 4.4 Chloride 101 Carbon Dioxide 30 Anion Gap 6 L BUN 20 Creatinine 0.70 Estim Creat Clear Calc 162 Estimated GFR > 60 Glucose 110 Calcium 8.7 Total Bilirubin 0.9 Direct Bilirubin 0.0 Indirect Bilirubin 0.5 AST 168 H ALT 662 H Alkaline Phosphatase 210 H Total Protein 7.0 Albumin 3.8 Triglycerides 365 H Cholesterol 113 LDL Cholesterol Direct 40 HDL Direct 16 Discharge Plan Discharge Attending physician on discharge: Vinay Davis Consulting providers: Colette Lund Discharging Clinician: Vinay Davis Anticipated Discharge Date/Time: 11/14/20 14:47 Patient Disposition: Home, Self-Care Activity: as tolerated Diet: regular Discharge Instructions: Please remained quarantined for total of 20 days after diagnosis. Contact your doctor or come to the Emergency Room if you have any fever or other worrisome symptoms. Follow-up with your doctor in 1-2 weeks. Please call for appointment. Patient Instructions: Antibiotic Form, Antitussives (By mouth) Stand Alone Forms: General Discharge Information Follow-up/Referrals: Alen,WICHO Beck [Primary Care Provider] - Call for Appointment
== END 2020-11-14 15:25 | disposition home or self-care (01) | DRG 177 ==
LOC: ANHED 11-09 00:02 → ANH3MEDSUR 11-09 07:12 → ANHICU 11-10 07:13 → ANH3MEDSUR 11-12 20:29 → ANHICU 11-16 14:38
PROVIDERS: Internal Medicine; Physician Assistant; Admitting Provider Internal Medicine; Emergency Provider Emergency Medicine; PCP Registered Nurse; Visit Provider Internal Medicine
DX: U07.1 COVID-19 (principal); J12.82 Pneumonia due to coronavirus disease 2019; J96.01 Acute respiratory failure with hypoxia; R74.01 Elevation of levels of liver transaminase levels; I10 Essential (primary) hypertension; Z79.899 Other long term (current) drug therapy
CPT/HCPCS: 36415; 36600; 71045; 71275; 76705; 80048; 80053; 80061; 80074; 80076; 81001; 82248; 82306; 82375; 82550; 82565; 82728; 82805; 83050; 83605; 83615; 83735; 83880; 84460; 84484; 85025; 85380; 85610; 85730; 86140; 87040; 93005; 93306; 94618; 94640; 94667; 96374; 97110; 97116; 97161; 99285; A9270; C9113; J1100; J1650; J7120; Q9967